=== PATIENT | female | born 1955 | race Caucasian/White ===

== ENCOUNTER 2017-09-18 05:57 | Emergency (ER) | payer SELFPAY ==
[2017-09-18 06:45] LABS: ABSOLUTE EOSINOPHILS # (AUTO) 0.1 10^3/uL (0.0-0.6); ABSOLUTE LYMPHOCYTES (AUTO) 1.7 10^3/uL (0.5-4.7); ABSOLUTE MONOCYTES (AUTO) 0.7 10^3/uL (0.1-1.4); ABSOLUTE NEUT (AUTO) 6.9 10^3/uL (1.7-8.2); BASOPHILS % (AUTO) 0.4 % (0-2); EOSINOPHILS % (AUTO) 0.5 % (0-6); HEMATOCRIT 45.8 % (36.0-47.0); HEMOGLOBIN 15.7 g/dL (12.0-15.5); LYMPHOCYTES % (AUTO) 17.8 % (13-45); MEAN CORPUSCULAR HEMOGLOBIN 31.3 pg (27.0-33.4); MEAN CORPUSCULAR HGB CONC 34.3 g/dL (32.0-36.0); MEAN CORPUSCULAR VOLUME 91 fl (80-97); MONOCYTES % (AUTO) 7.7 % (3-13); PLATELET COUNT 181 10^3/uL (150-450); RED BLOOD COUNT 5.03 10^6/uL (3.72-5.28); RED CELL DISTRIBUTION WIDTH 13.6 % (11.5-14.0); SEGMENTED NEUTROPHILS % (AUTO) 73.6 % (42-78); TOTAL CELLS COUNTED % (AUTO) 100 %; WHITE BLOOD COUNT 9.3 10^3/uL (4.0-10.5)
[2017-09-18 06:59] LABS: ALANINE AMINOTRANSFERASE 48 U/L (9-52); ALBUMIN 4.1 g/dL (3.5-5.0); ALKALINE PHOSPHATASE 90 U/L (38-126); ANION GAP 11 (5-19); ASPARTATE AMINO TRANSFERASE 35 U/L (14-36); BILIRUBIN,DIRECT 0.3 mg/dL (0.0-0.4); BILIRUBIN,TOTAL 1.4 mg/dL (0.2-1.3); BLOOD UREA NITROGEN 8 mg/dL (7-20); CALCIUM 9.7 mg/dL (8.4-10.2); CARBON DIOXIDE 28 mmol/L (22-30); CHLORIDE 103 mmol/L (98-107); GLUCOSE 234 mg/dL (75-110); POTASSIUM 3.7 mmol/L (3.6-5.0); SODIUM 141.8 mmol/L (137-145); TOTAL PROTEIN 7.3 g/dL (6.3-8.2)
[2017-09-18] MEDS ORDERED: NORMAL SALINE 1000 ML 1,000 ML IV ONE ×2 (07:22→09:55)
[2017-09-18] MEDS ORDERED: FAMOTIDINE INJ/PF 20 MG/2 ML SDV IV ONE (07:22)
[2017-09-18 08:25] LABS: APPEARANCE,URINE CLEAR; BILIRUBIN,URINE NEGATIVE (NEGATIVE); COLOR,URINE YELLOW; GLUCOSE, URINE 50 mg/dL (NEGATIVE); KETONES,URINE NEGATIVE (NEGATIVE); LEUKOCYTE ESTERASE,URINE NEGATIVE (NEGATIVE); NITRITE,URINE NEGATIVE (NEGATIVE); PROTEIN,URINE NEGATIVE (NEGATIVE); URINE SPECIFIC GRAVITY 1.005
[2017-09-18 08:38] LABS: ADD MANUAL MICROSCOPIC YES; WBC,URINE RARE /HPF
--- NOTE | 2017-09-18 09:01 | RADIOLOGY REPORT (SQ) ---
EXAM DESCRIPTION: CT ABD/PELVIS WITH IV ONLY COMPLETED DATE/TIME: 09/18/2017 8:40 am REASON FOR STUDY: epi abd pain COMPARISON: None. TECHNIQUE: CT scan of the abdomen and pelvis performed using helical scanning technique with dynamic intravenous contrast injection. No oral contrast. Images reviewed with lung, soft tissue, and bone windows. Reconstructed coronal and sagittal MPR images reviewed. Delayed images for evaluation of the urinary system also acquired. All images stored on PACS. All CT scanners at this facility use dose modulation, iterative reconstruction, and/or weight based d osing when appropriate to reduce radiation dose to as low as reasonably achievable (ALARA). [facility]: Dose Right [facility]: CareDose [facility]: Dose Right [facility]: Teradose 4D [facility]: [place] CONTRAST TYPE AND DOSE: contrast/concentration: Isovue 370.00 mg/ml; Total Contrast Delivered: 93.0 ml; Total Saline Delivered: 71.0 ml RENAL FUNCTION: GFR > 60. RADIATION DOSE: CT Rad equipment meets quality standard of care and radiation dose reduction techniq ues were employed. CTDIvol: 16.2 - 20.0 mGy. DLP: 1918 mGy-cm.. LIMITATIONS: None. FINDINGS: LOWER CHEST: No significant findings. No nodules or infiltrates. LIVER: Normal size. No masses. No dilated ducts. SPLEEN: Normal size. No focal lesions. PANCREAS: No masses. No significant calcifications. No adjacent inflammation or peripancreatic fluid collections. Pancreatic duct not dilated. GALLBLADDER: Surgically absent. ADRENAL GLANDS: No significant masses or asymmetry. RIGHT KIDNEY AND URETER: No solid masses. No significant calcifications. No hydronephrosis or hyd roureter. LEFT KIDNEY AND URETER: No solid masses. No significant calcifications. No hydronephrosis or hydr oureter. AORTA AND VESSELS: No aneurysm. No dissection. Renal arteries, SMA, celiac without stenosis. RETROPERITONEUM: No retroperitoneal adenopathy, hemorrhage or masses. BOWEL AND PERITONEAL CAVITY: No masses or inflammatory changes. No free fluid or peritoneal masses. APPENDIX: Normal. PELVIS: No mass. No free fluid. Normal bladder. ABDOMINAL WALL: Small umbilical hernia containing fat. BONES: Spondylosis and scoliosis. OTHER: No other significant finding. IMPRESSION: No acute abnormality in the abdomen or pelvis. TECHNICAL DOCUMENTATION: JOB ID: [id number] Quality ID # [id number]: Final reports with documentation of one or more dose reduction techniques (e.g., Au tomated exposure control, adjustment of the mA and/or kV according to patient size, use of iterative reconstruction technique) 2010 [email or web address]- All Rights Reserved
--- NOTE | 2017-09-18 09:22 | EKG REPORT ---
SEVERITY:- BORDERLINE ECG - SINUS RHYTHM BORDERLINE PROLONGED QT INTERVAL : Confirmed by: Kellee Banda 18-Sep-2017 09:22:14
[2017-09-18] MEDS ORDERED: KETOROLAC TROMETHAMINE INJ/PF 30 MG/1 ML SDV IV ONE (09:28)
[2017-09-18] MEDS ORDERED: ONDANSETRON HCL INJ/PF 4 MG/2 ML SDV IV ONE (09:28)
[2017-09-18] MEDS ORDERED: LORAZEPAM INJ 2 MG/1 ML VIAL IV ONE (09:52)
--- NOTE | 2017-09-18 10:28 | RADIOLOGY REPORT (SQ) ---
EXAM DESCRIPTION: CT HEAD WITHOUT COMPLETED DATE/TIME: 09/18/2017 10:11 am REASON FOR STUDY: ams COMPARISON: None. TECHNIQUE: Axial images acquired through the brain without intravenous contrast. Images reviewed wi th bone, brain and subdural windows. Images stored on PACS. All CT scanners at this facility use dose modulation, iterative reconstruction, and/or weight based d osing when appropriate to reduce radiation dose to as low as reasonably achievable (ALARA). [facility]: Dose Right [facility]: CareDose [facility]: Dose Right [facility]: Teradose 4D [facility]: Smart FOLUP RADIATION DOSE: CT Rad equipment meets quality standard of care and radiation dose reduction techniq ues were employed. CTDIvol: 64.6 mGy. DLP: 1163 mGy-cm. mGy. LIMITATIONS: None. FINDINGS: VENTRICLES: Normal size and contour. CEREBRUM: No masses. No hemorrhage. No midline shift. No evidence for acute infarction. Old left f rontal deep periventricular lacunar infarct. CEREBELLUM: No masses. No hemorrhage. No alteration of density. No evidence for acute infarction. EXTRAAXIAL SPACES: No fluid collections. No masses. ORBITS AND GLOBE: No intra- or extraconal masses. Normal contour of globe without masses. CALVARIUM: No fracture. PARANASAL SINUSES: No fluid or mucosal thickening. SOFT TISSUES: No mass or hematoma. OTHER: No other significant finding. IMPRESSION: 1. Chronic change, old left frontal deep white matter infarct. No acute abnormality det ected. EVIDENCE OF ACUTE STROKE: NO. COMMENT: Quality ID # 436: Final reports with documentation of one or more dose reduction techniques (e.g., Automated exposure control, adjustment of the mA and/or kV according to patient size, use of iterative reconstruction technique) TECHNICAL DOCUMENTATION: JOB ID: [id number]- All Rights Reserved
[2017-09-18 12:14] LABS: URINE AMPHETAMINES SCREEN NEGATIVE; URINE BARBITURATES SCREEN NEGATIVE; URINE BENZODIAZEPINES SCREEN NEGATIVE; URINE COCAINE SCREEN NEGATIVE; URINE MARIJUANA (THC) SCREEN NEGATIVE; URINE METHADONE SCREEN NEGATIVE; URINE PHENCYCLIDINE SCREEN NEGATIVE
--- NOTE | 2017-09-18 15:07 | ER Document Report ---
ED General - General TRAVEL OUTSIDE OF THE [place] IN LAST 30 DAYS: No - HPI Patient complains to provider of: Epigastric abdominal pain nausea vomiting <MADISYN LANE - Last Filed: 09/18/17 14:53> <JACK PALOMO - Last Filed: 09/18/17 16:13> <MIGUEL ANGEL VELÁZQUEZ - Last Filed: 09/18/17 16:48> - General Chief Complaint: Upper Abdominal Pain Stated Complaint: ABDOMINAL PAIN Time Seen by Provider: 09/18/17 06:33 - HPI Notes: Patient coming in for evaluation of Abdominal pain nausea vomiting. Patient states started over the last few days. Patient states unable tolerate p.o. Patient states she has had her gallbladder removed before denies drinking any alcohol denies any drugs. Denies any trauma to the abdomen. Upon my evaluation patient states she is feeling better after receiving Zofran. Patient is noted to be a little tachycardic. Denies any recent antibiotics denies fevers chills nausea vomiting. (MADISYN L[address]) Past Medical History - Social History Smoking Status: Never Smoker Chew tobacco use (# tins/day): No Frequency of alcohol use: Rare Drug Abuse: None Family History: Reviewed & Not Pertinent Patient has suicidal ideation: No Patient has homicidal ideation: No - Past Medical History Cardiac Medical History: Reports: Hx Hypercholesterolemia, Hx Hypertension Renal/ Medical History: Reports: Hx Kidney Stones. Denies: Hx Peritoneal Dialysis <MADISYN LANE - Last Filed: 09/18/17 14:53> Review of Systems - Review of Systems Constitutional: No symptoms reported EENT: No symptoms reported Cardiovascular: No symptoms reported Respiratory: No symptoms reported Gastrointestinal: Abdominal pain, Nausea, Vomiting Genitourinary: No symptoms reported Female Genitourinary: No symptoms reported Musculoskeletal: No symptoms reported Skin: No symptoms reported Hematologic/Lymphatic: No symptoms reported Neurological/Psychological: No symptoms reported -: Yes All other systems reviewed and negative <MADISYN LANE - Last Filed: 09/18/17 14:53> Physical Exam - Vital signs Interpretation: Normal - General General appearance: Appears well, Alert - HEENT Head: Normocephalic, Atraumatic Eyes: Normal Pupils: PERRL - Respiratory Respiratory status: No respiratory distress Chest status: Nontender Breath sounds: Normal Chest palpation: Normal - Cardiovascular Rhythm: Regular Heart sounds: Normal auscultation Murmur: No - Abdominal Inspection: Normal Distension: No distension Bowel sounds: Normal Tenderness: Tender - Mild epigastric Organomegaly: No organomegaly - Back Back: Normal, Nontender - Extremities General upper extremity: Normal inspection, Nontender, Normal color, Normal ROM , Normal temperature General lower extremity: Normal inspection, Nontender, Normal color, Normal ROM , Normal temperature, Normal weight bearing. No: Pilar's sign - Neurological Neuro grossly intact: Yes Cognition: Normal Orientation: AAOx4 [place] Coma Scale Eye Opening: Spontaneous [place] Coma Scale Verbal: Oriented [place] Coma Scale Motor: Obeys Commands [place] Coma Scale Total: 15 Speech: Normal Motor strength normal: LUE, RUE, LLE, RLE Sensory: Normal - Psychological Associated symptoms: Normal affect, Normal mood - Skin Skin Temperature: Warm Skin Moisture: Dry Skin Color: Normal <MADISYN LANE - Last Filed: 09/18/17 14:53> - Vital signs Vitals: Resp 18 09/18/17 05:58 Course - Laboratory Result Diagrams: 09/18/17 06:30 09/18/17 06:30 <[address] - Last Filed: 09/18/17 14:53> - Laboratory Result Diagrams: 09/18/17 06:30 09/18/17 06:30 <JACK PALOMO - Last Filed: 09/18/17 16:13> - Laboratory Result Diagrams: 09/18/17 06:30 09/18/17 06:30 <MIGUEL ANGEL VELÁZQUEZ - Last Filed: 09/18/17 16:48> - Re-evaluation Re-evalutation: 09/18/17 14:54 EKG troponin was performed to rule out cardiac causes which were negative. Patient's CT scan was negative as well laboratory studies were negative. Patient was able tolerate p.o. concerned about may be underlying gastritis however upon informing the patient that she will be discharged patient stated that she was hearing voices on the hallway with no talking. Patient states that the voices were people that she lives with. Further questioning patient states she has been off her medications for the last 2 weeks because she has been able to afford them. Patient states she is currently living in a mental health house. I was later informed by nursing staff patient had removed her IV when I questioned the patient while she removed her IV patient states that I removed. Patient seems to be absent slight hallucinations I did ask the patient about her psychiatric history patient states she has been off her medication has a history of depression also has a history of acute psychosis with her depression. Patient immediately asked to be transferred to [facility] for further evaluation. Because of this acute change I did CT the patient's head shows old infarct but nothing new. I did consult psych at this time I do believe more likely possibly just depression exacerbation of depression due to lack of medication. Patient is not making threats to herself does not look to want to harm anybody else nothing patient needs IVC criteria at this time. Possibility of underlying secondary gain however patient has not been to this facility multiple times. Currently waiting for our psych consult (MADISYN LANE) - Vital Signs Vital signs: Temp Pulse Resp BP Pulse Ox 18 162/76 H 95 09/18/17 12:18 09/18/17 12:18 09/18/17 12:18 - Laboratory Laboratory results interpreted by me: 09/18/17 09/18/17 09/18/17 06:30 06:30 07:36 Hgb 15.7 H Glucose 234 H Total Bilirubin 1.4 H Urine Glucose (UA) 50 H Urine Urobilinogen 4.0 H Discharge <MADISYN LANE - Last Filed: 09/18/17 14:53> <JACK PALOMO - Last Filed: 09/18/17 16:13> <MIGUEL ANGEL VELÁZQUEZ - Last Filed: 09/18/17 16:48> - Discharge Clinical Impression: Nausea & vomiting Qualifiers: Vomiting type: unspecified Vomiting Intractability: unspecified Qualified Code( s): R11.2 - Nausea with vomiting, unspecified Abdominal pain Qualifiers: Abdominal location: unspecified location Qualified Code(s): R10.9 - Unspecified abdominal pain Depression Qualifiers: Depression Type: unspecified Qualified Code(s): F32.9 - Major depressive disorder, single episode, unspecified Condition: Stable Disposition: HOME, SELF-CARE Instructions: Abdominal Pain ([facility]), Vomiting ([facility]) Additional Instructions: Follow-up with your primary care physician and your mental health provider. Take medications as prescribed. Prescriptions: Ondansetron [Zofran Odt 4 mg Tablet] 1 - 2 tab PO Q4H PRN #15 tab.rapdis PRN Reason: For Nausea/Vomiting Paroxetine HCl [Paxil 20 mg Tablet] 20 mg PO DAILY #7 tablet Paroxetine HCl [Paxil 20 mg Tablet] 20 mg PO DAILY #7 tablet Forms: Elevated Blood Pressure Referrals: [facility] [Outside] - Follow up as needed
[2017-09-18] MEDS ORDERED: PAROXETINE HCL 20 MG TABLET PO ONE (15:57)
[2017-09-18] MEDS ORDERED: QUETIAPINE FUMARATE 25 MG TABLET PO ONE (15:57)
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
[2017-09-18 20:06] VITALS: BP 115/49
== END 2017-09-18 20:19 | disposition home or self-care (01) ==
LOC: ER 05:57
DX: F32.9 Major depressive disorder, single episode, unspecified (principal); R10.9 Unspecified abdominal pain; R11.2 Nausea with vomiting, unspecified
CPT/HCPCS: 93005; 99285; 96361; 96374; 96375; 36415; 83690; 85025; 80053; 81001; 84484; 80307; 70450; 74177; 93010; J2405; J7030; S0028

== ENCOUNTER 2017-10-29 23:29 | Emergency (ER) | payer SELFPAY ==
[2017-10-30 00:02] VITALS: BP 133/64
[2017-10-30 02:39] LABS: APPEARANCE,URINE CLEAR; BILIRUBIN,URINE NEGATIVE (NEGATIVE); COLOR,URINE STRAW; GLUCOSE, URINE NEGATIVE (NEGATIVE); KETONES,URINE NEGATIVE (NEGATIVE); LEUKOCYTE ESTERASE,URINE NEGATIVE (NEGATIVE); NITRITE,URINE NEGATIVE (NEGATIVE); PROTEIN,URINE NEGATIVE (NEGATIVE); URINE SPECIFIC GRAVITY 1.002; UROBILINOGEN,URINE NEGATIVE mg/dL (<2.0)
--- NOTE | 2017-10-30 03:04 | ER Document Report ---
ED General - General Chief Complaint: Urinary Retention Stated Complaint: POSSIBLE DEHYDRATION Time Seen by Provider: 10/30/17 00:44 Notes: Patient is a 62-year-old female who presents with complaints of dysuria and urinary retention although has been able to urinate here in the emergency department. Patient is a very poor historian, but does relate that she has had a history of similar symptoms in the past secondary to urinary tract infections. She notes a pain with urination but denies any lower abdominal pain , flank pain, fever, vomiting or constitutional symptoms. She states that she just completed antibiotics several days ago for a urinary tract infection diagnosed by a primary doctor. TRAVEL OUTSIDE OF THE [place] IN LAST 30 DAYS: No - Related Data Allergies/Adverse Reactions: No Known Allergies Allergy (Unverified 10/29/17 23:36) Past Medical History - General Information source: Patient - Social History Smoking Status: Current Every Day Smoker Chew tobacco use (# tins/day): No Frequency of alcohol use: None Drug Abuse: None Family History: Reviewed & Not Pertinent Patient has suicidal ideation: No Patient has homicidal ideation: No - Past Medical History Cardiac Medical History: Reports: Hx Hypercholesterolemia, Hx Hypertension Renal/ Medical History: Reports: Hx Kidney Stones. Denies: Hx Peritoneal Dialysis Review of Systems - Review of Systems Notes: Constitutional: Negative for fever. HENT: Negative for sore throat. Eyes: Negative for visual changes. Cardiovascular: Negative for chest pain. Respiratory: Negative for shortness of breath. Gastrointestinal: Negative for abdominal pain, vomiting or diarrhea. Genitourinary: Positive for dysuria. Musculoskeletal: Negative for back pain. Skin: Negative for rash. Neurological: Negative for headaches, weakness or numbness. 10 point ROS negative except as marked above and in HPI. Physical Exam - Vital signs Vitals: Temp Pulse Resp BP Pulse Ox 98.6 F 91 18 133/64 H 97 10/30/17 00:01 10/30/17 00:01 10/30/17 00:01 10/30/17 00:01 10/30/17 00:01 Interpretation: Normal Notes: PHYSICAL EXAMINATION: GENERAL: Well-appearing, well-nourished and in no acute distress. HEAD: Atraumatic, normocephalic. EYES: Pupils equal round and reactive to light, extraocular movements intact, sclera anicteric, conjunctiva are normal. ENT: nares patent, oropharynx clear without exudates. Moist mucous membranes. NECK: Normal range of motion, supple without lymphadenopathy LUNGS: Breath sounds clear to auscultation bilaterally and equal. No wheezes rales or rhonchi. HEART: Regular rate and rhythm without murmurs ABDOMEN: Soft, nontender, normoactive bowel sounds. No guarding, no rebound. No masses appreciated. EXTREMITIES: Normal range of motion, no pitting or edema. No cyanosis. NEUROLOGICAL: No focal neurological deficits. Moves all extremities spontaneously and on command. PSYCH: Normal mood, normal affect. SKIN: Warm, Dry, normal turgor, no rashes or lesions noted. Course - Re-evaluation Re-evalutation: 10/30/17 03:03 Patient presents with dysuria and a feeling of inability to urinate although her urinalysis does not demonstrate any evidence of an infection and does not have any significant concentration that one would expect for urinary retention. She has been able to urinate without difficulty. She has no focal abdominal tenderness on examination to suggest an alternative pathology such as an acute appendicitis, mesenteric ischemia, bowel obstruction or bowel perforation. At this time will discharge with return precautions and follow-up recommendations. Verbal discharge instructions given a the bedside and opportunity for questions given. Medication warnings reviewed. Patient is in agreement with this plan and has verbalized understanding of return precautions and the need for primary care follow-up in the next 24-72 hours. - Vital Signs Vital signs: Temp Pulse Resp BP Pulse Ox 98.6 F 91 18 133/64 H 97 10/30/17 00:01 10/30/17 00:01 10/30/17 00:01 10/30/17 00:01 10/30/17 00:01 Discharge - Discharge Clinical Impression: Dysuria Condition: Good Disposition: HOME, SELF-CARE Additional Instructions: Your urine is normal today does not show any signs of infection or dehydration. Follow-up with your primary care doctor as needed for the symptoms. Return if you have any additional concerns of any fever, worsening of your pain, inability to urinate, passing out, or any other symptoms that are worrisome to you.
== END 2017-10-30 03:14 | disposition home or self-care (01) ==
LOC: ER 23:29
DX: R30.0 Dysuria (principal); I10 Essential (primary) hypertension; F17.200 Nicotine dependence, unspecified, uncomplicated; Z87.440 Personal history of urinary (tract) infections; Z87.442 Personal history of urinary calculi
CPT/HCPCS: 51701; 81001; 99283

== ENCOUNTER 2017-10-31 08:38 | Emergency (ER) | payer SELFPAY ==
--- NOTE | 2017-10-31 09:21 | ER Document Report ---
ED GI/ - General Chief Complaint: Urinary Problem Stated Complaint: URINARY ISSUES Time Seen by Provider: 10/31/17 09:10 Mode of Arrival: Ambulatory Information source: Patient Notes: Patient reports difficulty emptying her bladder off and on for the past 4 days. Patient states she was here 2 days ago for the same complaint. Patient does complain of lower pelvic pressure that is worse to the left lower quadrant. Patient denies any nausea vomiting or diarrhea. Patient denies any fever. Patient denies any back pain. TRAVEL OUTSIDE OF THE [place] IN LAST 30 DAYS: No - HPI Patient complains to provider of: Pelvic pain, Other - Urinary retention Onset: Other - 4 days Timing/Duration: Waxing and waning Quality of pain: Achy Pain Level: 1 Location: LLQ Vaginal bleeding (Compared to normal period): None Associated symptoms: Urinary hesitancy, Urinary retention. denies: Dysuria, Fever, Loss of appetite, Nausea Exacerbated by: Denies Relieved by: Denies Similar symptoms previously: Yes Recently seen / treated by doctor: No - Related Data Allergies/Adverse Reactions: No Known Allergies Allergy (Verified 10/31/17 08:40) Past Medical History - General Information source: Patient - Social History Smoking Status: Former Smoker Frequency of alcohol use: None Drug Abuse: None Occupation: None Family History: Reviewed & Not Pertinent Patient has suicidal ideation: No Patient has homicidal ideation: No - Past Medical History Cardiac Medical History: Reports: Hx Hypercholesterolemia, Hx Hypertension Renal/ Medical History: Reports: Hx Kidney Stones. Denies: Hx Peritoneal Dialysis Past Surgical History: Reports: Hx Urinary Tract Surgery Review of Systems - Review of Systems Constitutional: No symptoms reported. denies: Fever, Recent illness EENT: No symptoms reported Cardiovascular: No symptoms reported. denies: Chest pain Respiratory: No symptoms reported. denies: Cough Gastrointestinal: Abdominal pain. denies: Diarrhea, Nausea, Vomiting, Poor appetite Genitourinary: Retention. denies: Dysuria Female Genitourinary: No symptoms reported. denies: Vaginal discharge, Vaginal bleeding Musculoskeletal: No symptoms reported. denies: Back pain Skin: No symptoms reported Hematologic/Lymphatic: No symptoms reported Neurological/Psychological: No symptoms reported. denies: Weakness, Numbness Physical Exam - Vital signs Vitals: Temp Pulse Resp BP Pulse Ox 97.6 F 87 16 145/67 H 97 10/31/17 08:44 10/31/17 08:44 10/31/17 08:44 10/31/17 08:44 10/31/17 08:44 - General General appearance: Appears well, Alert In distress: None - HEENT Head: Normocephalic Eyes: Normal Conjunctiva: Normal Nasal: Normal Mouth/Lips: Normal Mucous membranes: Normal Pharynx: Normal Neck: Normal, Supple. No: Lymphadenopathy - Respiratory Respiratory status: No respiratory distress Chest status: Nontender Breath sounds: Normal. No: Rales, Rhonchi, Wheezing Chest palpation: Normal - Cardiovascular Rhythm: Regular Heart sounds: S1 appreciated, S2 appreciated Murmur: No - Abdominal Inspection: Normal Distension: No distension Bowel sounds: Normal Tenderness: Tender - Suprapubic, left lower pelvic Organomegaly: No organomegaly - Genitourinary External exam: Normal Speculum exam: Normal Vaginal bleeding: None Bimanuel exam: Adnexal tenderness - left, Other - Patient with palpable stool burden - Back Back: Normal. No: CVA tenderness - Extremities General upper extremity: Normal inspection, Normal ROM General lower extremity: Normal inspection, Normal ROM - Neurological Neuro grossly intact: Yes Cognition: Normal Lobo Coma Scale Eye Opening: Spontaneous Lobo Coma Scale Verbal: Oriented Lobo Coma Scale Motor: Obeys Commands [place] Coma Scale Total: 15 - Psychological Associated symptoms: Normal affect, Normal mood - Skin Skin Temperature: Warm Skin Moisture: Dry Skin Color: Normal Course - Re-evaluation Re-evalutation: 10/31/17 12:58 Patient had a postvoid residual of 500 mL's of urine on straight cath. Patient states that whenever she went ultrasound after the catheterization she was able to void without difficulty. Patient states she feels as though somebody moved something on the way that allowed it to be easier for her to urinate. Patient states that while waiting here in the department she is again voided without difficulty. Patient has not voided twice since her initial catheterization without problem. Review of patient's survey film does demonstrate a large amount of stool. Will treat constipation symptoms and have patient to return as needed for any difficulty with voiding. Patient without any findings concerning for obstructive uropathy, patient without any back pain, no concern for cauda equina, no concerning for any type of colitis or diverticulitis. - Vital Signs Vital signs: Temp Pulse Resp BP Pulse Ox 97.6 F 109 H 16 124/72 95 10/31/17 14:17 10/31/17 14:17 10/31/17 14:17 10/31/17 14:17 10/31/17 14:17 - Laboratory Result Diagrams: 10/31/17 09:47 10/31/17 09:47 Laboratory results interpreted by me: 10/31/17 09:47 Glucose 178 H AST 54 H ALT 61 H Labs- Entire Visit 10/31/17 10/31/17 10/31/17 09:47 09:47 09:57 WBC 5.3 RBC 4.82 Hgb 15.1 Hct 44.5 MCV 92 MCH 31.4 MCHC 34.0 RDW 14.0 Plt Count 173 Seg Neutrophils % 63.2 Lymphocytes % 24.1 Monocytes % 9.4 Eosinophils % 2.6 Basophils % 0.7 Absolute Neutrophils 3.4 Absolute Lymphocytes 1.3 Absolute Monocytes 0.5 Absolute Eosinophils 0.1 Absolute Basophils 0.0 Sodium 141.4 Potassium 3.7 Chloride 103 Carbon Dioxide 28 Anion Gap 10 BUN 8 Creatinine 0.72 Est GFR ( Amer) > 60 Est GFR (Non-Af Amer) > 60 Glucose 178 H Calcium 9.6 Total Bilirubin 0.8 Direct Bilirubin 0.4 Neonat Total Bilirubin Not Reportable Neonat Direct Bilirubin Not Reportable Neonat Indirect Bili Not Reportable AST 54 H ALT 61 H Alkaline Phosphatase 84 Total Protein 7.3 Albumin 4.1 Urine Color Urine Appearance Urine pH Ur Specific Black Urine Protein Urine Glucose (UA) Urine Ketones Urine Blood Urine Nitrite Urine Bilirubin Urine Urobilinogen Ur Leukocyte Esterase Urine WBC (Auto) Urine RBC (Auto) Squamous Epi Cells Auto Urine Mucus (Auto) Urine Ascorbic Acid Epi Cells (Wet Prep) Bacteria (Wet Prep) Trichomonas (Wet Prep) Vaginal WBC Vaginal Yeast Chlamydia DNA (PCR) NOT DETECTED N.gonorrhoeae DNA (PCR) NOT DETECTED 10/31/17 10/31/17 09:57 10:05 WBC RBC Hgb Hct MCV MCH MCHC RDW Plt Count Seg Neutrophils % Lymphocytes % Monocytes % Eosinophils % Basophils % Absolute Neutrophils Absolute Lymphocytes Absolute Monocytes Absolute Eosinophils Absolute Basophils Sodium Potassium Chloride Carbon Dioxide Anion Gap BUN Creatinine Est GFR ( Amer) Est GFR (Non-Af Amer) Glucose Calcium Total Bilirubin Direct Bilirubin Neonat Total Bilirubin Neonat Direct Bilirubin Neonat Indirect Bili AST ALT Alkaline Phosphatase Total Protein Albumin Urine Color YELLOW Urine Appearance SLIGHTLY-CLOUDY Urine pH 6.0 Ur Specific Black 1.003 Urine Protein NEGATIVE Urine Glucose (UA) NEGATIVE Urine Ketones NEGATIVE Urine Blood NEGATIVE Urine Nitrite NEGATIVE Urine Bilirubin NEGATIVE Urine Urobilinogen NEGATIVE Ur Leukocyte Esterase NEGATIVE Urine WBC (Auto) 0 Urine RBC (Auto) 0 Squamous Epi Cells Auto 7 Urine Mucus (Auto) RARE Urine Ascorbic Acid NEGATIVE Epi Cells (Wet Prep) 3+ EPITHELIALS SEEN Bacteria (Wet Prep) 3+ BACTERIA SEEN Trichomonas (Wet Prep) NO TRICHOMONAS SEEN Vaginal WBC FEW WBCS SEEN Vaginal Yeast NO YEAST SEEN Chlamydia DNA (PCR) N.gonorrhoeae DNA (PCR) - Diagnostic Test Radiology reviewed: Image reviewed, Reports reviewed Discharge - Discharge Clinical Impression: Urinary symptom or sign, Hx of essential hypertension Abdominal pain Qualifiers: Abdominal location: unspecified location Qualified Code(s): R10.9 - Unspecified abdominal pain Condition: Stable Disposition: HOME, SELF-CARE Instructions: Abdominal Pain ([facility]), Constipation ([facility]) Additional Instructions: Return immediately for any new or worsening symptoms Followup with your primary care provider, call tomorrow to make a followup appointment If you are unable to urinate, return immediately for further evaluation Take MiraLAX at home to help with your constipation symptoms Follow-up with urologist for any continued problems Prescriptions: Polyethylene Glycol 3350 [Miralax] 17 gm PO DAILY #119 powder Forms: Elevated Blood Pressure Referrals: [facility] [Provider Group] - Follow up as needed [facility] [Provider Group] - Follow up as needed [facility] [Provider Group] - Follow up as needed
[2017-10-31 10:12] LABS: BACTERIA (WET MOUNT) 3+ BACTERIA SEEN; EPITHELIALS (WET MOUNT) 3+ EPITHELIALS SEEN; T.VAGINALIS (WET MOUNT) NO TRICHOMONAS SEEN; WBCS (WET MOUNT) FEW WBCS SEEN; YEAST (WET MOUNT) NO YEAST SEEN
[2017-10-31 10:33] LABS: ABSOLUTE EOSINOPHILS # (AUTO) 0.1 10^3/uL (0.0-0.6); ABSOLUTE LYMPHOCYTES (AUTO) 1.3 10^3/uL (0.5-4.7); ABSOLUTE MONOCYTES (AUTO) 0.5 10^3/uL (0.1-1.4); ABSOLUTE NEUT (AUTO) 3.4 10^3/uL (1.7-8.2); BASOPHILS % (AUTO) 0.7 % (0-2); EOSINOPHILS % (AUTO) 2.6 % (0-6); HEMATOCRIT 44.5 % (36.0-47.0); HEMOGLOBIN 15.1 g/dL (12.0-15.5); LYMPHOCYTES % (AUTO) 24.1 % (13-45); MEAN CORPUSCULAR HEMOGLOBIN 31.4 pg (27.0-33.4); MEAN CORPUSCULAR VOLUME 92 fl (80-97); MONOCYTES % (AUTO) 9.4 % (3-13); RED BLOOD COUNT 4.82 10^6/uL (3.72-5.28); SEGMENTED NEUTROPHILS % (AUTO) 63.2 % (42-78); TOTAL CELLS COUNTED % (AUTO) 100 %; WHITE BLOOD COUNT 5.3 10^3/uL (4.0-10.5)
[2017-10-31 10:38] LABS: APPEARANCE,URINE SLIGHTLY-CLOUDY; BILIRUBIN,URINE NEGATIVE (NEGATIVE); COLOR,URINE YELLOW; GLUCOSE, URINE NEGATIVE (NEGATIVE); KETONES,URINE NEGATIVE (NEGATIVE); LEUKOCYTE ESTERASE,URINE NEGATIVE (NEGATIVE); NITRITE,URINE NEGATIVE (NEGATIVE); PROTEIN,URINE NEGATIVE (NEGATIVE); URINE SPECIFIC GRAVITY 1.003; UROBILINOGEN,URINE NEGATIVE mg/dL (<2.0)
[2017-10-31 10:50] LABS: ALANINE AMINOTRANSFERASE 61 U/L (9-52); ALBUMIN 4.1 g/dL (3.5-5.0); ALKALINE PHOSPHATASE 84 U/L (38-126); ANION GAP 10 (5-19); ASPARTATE AMINO TRANSFERASE 54 U/L (14-36); BILIRUBIN,DIRECT 0.4 mg/dL (0.0-0.4); BILIRUBIN,TOTAL 0.8 mg/dL (0.2-1.3); BLOOD UREA NITROGEN 8 mg/dL (7-20); CALCIUM 9.6 mg/dL (8.4-10.2); CARBON DIOXIDE 28 mmol/L (22-30); CHLORIDE 103 mmol/L (98-107); GLUCOSE 178 mg/dL (75-110); POTASSIUM 3.7 mmol/L (3.6-5.0); SODIUM 141.4 mmol/L (137-145); TOTAL PROTEIN 7.3 g/dL (6.3-8.2)
[2017-10-31 11:02] LABS: PLATELET COUNT 173 10^3/uL (150-450)
[2017-10-31 11:35] LABS: CHLAM PCR NOT DETECTED (NOT DETECT); GON PCR NOT DETECTED (NOT DETECT)
--- NOTE | 2017-10-31 11:36 | RADIOLOGY REPORT (SQ) ---
EXAM DESCRIPTION: U/S NON OB PEL TV W/DOPPLER COMPLETED DATE/TIME: 10/31/2017 11:03 am REASON FOR STUDY: suprapubic, L adnexal tenderness COMPARISON: CT abdomen and pelvis 09/18/2017. TECHNIQUE: Dynamic and static grayscale images acquired of the pelvis via transvaginal approach and recorded on PACS. Additional selected color Doppler and spectral images recorded. LIMITATIONS: None. FINDINGS: UTERUS: The uterus demonstrates normal echogenicity measuring 5.7 x 4.4 x 3.3 cm. . ENDOMETRIAL STRIPE: The endometrium is normal measuring 3 mm. CERVIX: Small nabothian cysts of the cervix. RIGHT OVARY: The right ovary is nonvisualized. On prior CT the right ovary measured 1.8 x 2 x 1.7 cm . The right ovary contained a small follicular cyst. LEFT OVARY: The left ovary is not visualized. On prior CT of the pelvis 09/18/2017 the left ovary was 2.9 x3 x 3.7 cm in size OTHER: No free fluid identified. IMPRESSION: Nonvisualization of the ovaries. Nabothian cysts cervix. Otherwise, no abnormality see n. TECHNICAL DOCUMENTATION: JOB ID: [id number] SC-69 2010 [employer]- All Rights Reserved
--- NOTE | 2017-10-31 12:24 | RADIOLOGY REPORT (SQ) ---
EXAM DESCRIPTION: CT ABD/PELVIS WITH IV ONLY COMPLETED DATE/TIME: 10/31/2017 12:12 pm REASON FOR STUDY: LLQ pain, urinary retention COMPARISON: 09/18/2017 TECHNIQUE: CT scan of the abdomen and pelvis performed using helical scanning technique with dynamic intravenous contrast injection. No oral contrast. Images reviewed with lung, soft tissue, and bone windows. Reconstructed coronal and sagittal MPR images reviewed. Delayed images for evaluation of the urinary system also acquired. All images stored on PACS. All CT scanners at this facility use dose modulation, iterative reconstruction, and/or weight based d osing when appropriate to reduce radiation dose to as low as reasonably achievable (ALARA). [facility]: Dose Right [facility]: CareDose [facility]: Dose Right [facility]: Teradose 4D [facility]: [email or web address] CONTRAST TYPE AND DOSE: contrast/concentration: Isovue 370.00 mg/ml; Total Contrast Delivered: 79.0 ml; Total Saline Delivered: 68.0 ml RENAL FUNCTION: GFR > 60. RADIATION DOSE: CT Rad equipment meets quality standard of care and radiation dose reduction techniq ues were employed. CTDIvol: 9.9 - 14.5 mGy. DLP: 1308 mGy-cm.. LIMITATIONS: None. FINDINGS: LOWER CHEST: No significant findings. No nodules or infiltrates. LIVER: Stable degree of hepatic steatosis. No masses. No dilated ducts. SPLEEN: Normal size. No focal lesions. PANCREAS: No masses. No significant calcifications. No adjacent inflammation or peripancreatic fluid collections. Pancreatic duct not dilated. GALLBLADDER: Surgically absent. ADRENAL GLANDS: No significant masses or asymmetry. RIGHT KIDNEY AND URETER: No solid masses. No significant calcifications. No hydronephrosis or hyd roureter. LEFT KIDNEY AND URETER: No solid masses. No significant calcifications. No hydronephrosis or hydr oureter. AORTA AND VESSELS: No aneurysm. No dissection. Renal arteries, SMA, celiac without stenosis. RETROPERITONEUM: No retroperitoneal adenopathy, hemorrhage or masses. BOWEL AND PERITONEAL CAVITY: No masses or inflammatory changes. No free fluid or peritoneal masses. APPENDIX: Normal. PELVIS: No mass. No free fluid. Normal bladder. ABDOMINAL WALL: No masses. No hernias. BONES: Stable degenerative change without acute fracture or suspicious osseous lesion. OTHER: No other significant finding. IMPRESSION: NO ACUTE FINDINGS WITHIN THE ABDOMEN OR PELVIS. NO SIGNIFICANT CHANGE FROM 09/18/2017. TECHNICAL DOCUMENTATION: JOB ID: [id number] Quality ID # [id number]: Final reports with documentation of one or more dose reduction techniques (e.g., Au tomated exposure control, adjustment of the mA and/or kV according to patient size, use of iterative reconstruction technique) 2010 [employer]- All Rights Reserved
[2017-10-31] MEDS ORDERED: NA PHOS,M-B/NA PHOS,DI-BA (ADULT) 133 ML ENEMA PR ONE (12:57)
[2017-10-31 14:28] VITALS: BP 124/72
== END 2017-10-31 14:17 | disposition home or self-care (01) ==
LOC: ER 08:38
DX: R39.198 Other difficulties with micturition (principal); I10 Essential (primary) hypertension; R10.2 Pelvic and perineal pain; R10.32 Left lower quadrant pain; R39.11 Hesitancy of micturition; R33.9 Retention of urine, unspecified; Z87.891 Personal history of nicotine dependence
CPT/HCPCS: 99284; 36415; 87086; 87210; 85025; 80053; 81001; 87491; 87591; 76830; 93976; 74177; J3490

== ENCOUNTER 2017-11-01 05:26 | Emergency (ER) | payer SELFPAY ==
--- NOTE | 2017-11-01 08:10 | RADIOLOGY REPORT (SQ) ---
EXAM DESCRIPTION: CHEST PA/LAT COMPLETED DATE/TIME: 11/01/2017 7:59 am REASON FOR STUDY: palpitation COMPARISON: None. EXAM PARAMETERS: NUMBER OF VIEWS: two views TECHNIQUE: Digital Frontal and Lateral radiographic views of the chest acquired. RADIATION DOSE: NA LIMITATIONS: none FINDINGS: LUNGS AND PLEURA: Hyperinflation of the lungs is consistent with COPD. Minimal bilateral apical pleural thickening. MEDIASTINUM AND HILAR STRUCTURES: No masses or contour abnormalities. HEART AND VASCULAR STRUCTURES: The heart is normal with normal pulmonary vasculature. BONES: Mid and lower dorsal scoliosis convex right. Upper dorsal scoliosis convex left. HARDWARE: None in the chest. OTHER: Surgical clips right upper quadrant. IMPRESSION: COPD. TECHNICAL DOCUMENTATION: JOB ID: [id number] SC-69 2010 [employer]- All Rights Reserved
[2017-11-01 09:03] LABS: ANION GAP 10 (5-19); BLOOD UREA NITROGEN 8 mg/dL (7-20); CALCIUM 9.5 mg/dL (8.4-10.2); CARBON DIOXIDE 26 mmol/L (22-30); CHLORIDE 107 mmol/L (98-107); GLUCOSE 102 mg/dL (75-110); MAGNESIUM 1.9 mg/dL (1.6-2.3); POTASSIUM 3.9 mmol/L (3.6-5.0); SODIUM 142.9 mmol/L (137-145)
[2017-11-01 09:09] LABS: ABSOLUTE EOSINOPHILS # (AUTO) 0.2 10^3/uL (0.0-0.6); ABSOLUTE MONOCYTES (AUTO) 0.6 10^3/uL (0.1-1.4); BASOPHILS % (AUTO) 0.5 % (0-2); HEMATOCRIT 43.5 % (36.0-47.0); HEMOGLOBIN 14.9 g/dL (12.0-15.5); LYMPHOCYTES % (AUTO) 14.9 % (13-45); MEAN CORPUSCULAR HEMOGLOBIN 31.6 pg (27.0-33.4); MEAN CORPUSCULAR HGB CONC 34.3 g/dL (32.0-36.0); MEAN CORPUSCULAR VOLUME 92 fl (80-97); MONOCYTES % (AUTO) 8.4 % (3-13); PLATELET COUNT 165 10^3/uL (150-450); RED BLOOD COUNT 4.72 10^6/uL (3.72-5.28); SEGMENTED NEUTROPHILS % (AUTO) 73.2 % (42-78); TOTAL CELLS COUNTED % (AUTO) 100 %; WHITE BLOOD COUNT 6.8 10^3/uL (4.0-10.5)
--- NOTE | 2017-11-01 09:34 | EKG REPORT ---
SEVERITY:- ABNORMAL ECG - SINUS TACHYCARDIA PROBABLE LEFT ATRIAL ABNORMALITY CONSIDER ANTERIOR INFARCT BORDERLINE PROLONGED QT INTERVAL : Confirmed by: Kellee Banda 01-Nov-2017 09:34:25
--- NOTE | 2017-11-01 09:40 | ER Document Report ---
ED General - General Chief Complaint: High Blood Pressure Stated Complaint: BLOOD PRESSURE PROBLEM Time Seen by Provider: 11/01/17 07:44 TRAVEL OUTSIDE OF THE [place] IN LAST 30 DAYS: No - HPI Patient complains to provider of: Palpitations elevated blood pressure Notes: Patient is coming in for concerns of palpitation of her blood pressure occurred just prior to arrival. Patient is questioning if this may be her anxiety is that she does have a history of diabetes on the psychiatric medications. Patient states no change in medications. Patient denies any fever chills nausea vomiting diarrhea denies any recent travel denies any shortness of breath. Patient upon my evaluation states that since she has been in the waiting room her symptoms have resolved. Patient resting comfortably upon my evaluation. - Related Data Allergies/Adverse Reactions: No Known Allergies Allergy (Verified 10/31/17 08:40) Past Medical History - Social History Smoking Status: Current Every Day Smoker Chew tobacco use (# tins/day): No Family History: Reviewed & Not Pertinent Patient has suicidal ideation: No Patient has homicidal ideation: No - Past Medical History Cardiac Medical History: Reports: Hx Hypercholesterolemia, Hx Hypertension Renal/ Medical History: Reports: Hx Kidney Stones. Denies: Hx Peritoneal Dialysis Past Surgical History: Reports: Hx Urinary Tract Surgery Review of Systems - Review of Systems Constitutional: No symptoms reported EENT: No symptoms reported Cardiovascular: Palpitations Respiratory: No symptoms reported Gastrointestinal: No symptoms reported Genitourinary: No symptoms reported Female Genitourinary: No symptoms reported Musculoskeletal: No symptoms reported Skin: No symptoms reported Hematologic/Lymphatic: No symptoms reported Neurological/Psychological: No symptoms reported -: Yes All other systems reviewed and negative Physical Exam - Vital signs Vitals: Temp Pulse Resp BP Pulse Ox 98.3 F 100 20 147/69 H 96 11/01/17 05:40 11/01/17 05:40 11/01/17 05:40 11/01/17 05:40 11/01/17 05:40 Interpretation: Normal - General General appearance: Appears well, Alert - HEENT Head: Normocephalic, Atraumatic Eyes: Normal Pupils: PERRL - Respiratory Respiratory status: No respiratory distress Chest status: Nontender Breath sounds: Normal Chest palpation: Normal - Cardiovascular Rhythm: Regular Heart sounds: Normal auscultation Murmur: No - Abdominal Inspection: Normal Distension: No distension Bowel sounds: Normal Tenderness: Nontender Organomegaly: No organomegaly - Back Back: Normal, Nontender - Extremities General upper extremity: Normal inspection, Nontender, Normal color, Normal ROM , Normal temperature General lower extremity: Normal inspection, Nontender, Normal color, Normal ROM , Normal temperature, Normal weight bearing. No: Pilar's sign - Neurological Neuro grossly intact: Yes Cognition: Normal Orientation: AAOx4 [place] Coma Scale Eye Opening: Spontaneous [place] Coma Scale Verbal: Oriented [place] Coma Scale Motor: Obeys Commands [place] Coma Scale Total: 15 Speech: Normal Motor strength normal: LUE, RUE, LLE, RLE Sensory: Normal - Psychological Associated symptoms: Normal affect, Normal mood - Skin Skin Temperature: Warm Skin Moisture: Dry Skin Color: Normal Course - Re-evaluation Re-evalutation: 11/01/17 13:43 The patient has palpitations as the patient's palpitations is not suggestive of pulmonary embolus, cardiac ischemia, aortic dissection, or other serious etiology. Given the extremely low risk of these diagnoses further testing and evaluation for these possibilities does not appear to be indicated at this time. The patient has been instructed to return if the symptoms worsen or change in any way. - Vital Signs Vital signs: Temp Pulse Resp BP Pulse Ox 98.0 F 96 20 141/73 H 97 11/01/17 10:16 11/01/17 10:16 11/01/17 05:40 11/01/17 10:16 11/01/17 10:16 - Laboratory Result Diagrams: 11/01/17 08:37 11/01/17 08:22 Discharge - Discharge Clinical Impression: Palpitation Condition: Good Disposition: HOME, SELF-CARE Instructions: Anxiety ([facility]), Palpitations (Irregular or Rapid Heartrate) ([facility]) Additional Instructions: Your evaluation does not show any signs of infection within your lungs no signs of any cardiac disease. I recommend she follow-up with your primary care physician. There is a possibility could be on her underlying anxiety. I will start you on Vistaril to take at night to discuss your symptoms with your primary care physician in follow-up. Prescriptions: Hydroxyzine Pamoate [Vistaril 25 mg Capsule] 25 mg PO QHS #14 capsule
[2017-11-01 10:18] VITALS: BP 141/73
== END 2017-11-01 10:30 | disposition home or self-care (01) ==
LOC: ER 05:26
DX: F41.9 Anxiety disorder, unspecified (principal); Z79.899 Other long term (current) drug therapy; R00.2 Palpitations; I10 Essential (primary) hypertension; F17.200 Nicotine dependence, unspecified, uncomplicated
CPT/HCPCS: 36415; 71046; 80048; 83735; 84484; 85025; 93005; 93010; 99284

== ENCOUNTER 2017-11-13 00:50 | Emergency (ER) | payer SELFPAY ==
--- NOTE | 2017-11-13 02:22 | ER Document Report ---
HPI - HPI Pain Level: 3 Notes: Patient is a 62-year-old female who presents to the ED with 2 complaints. Patient states that she has had vaginal discomfort on the inside 1 day. Patient states that this is what brought her to the emergency department today. She has not noticed any obvious discharge, bleeding. Patient states that she is not concerned about STDs or STI's that she has not been sexually active. Patient also complains of incomplete voiding x2 days. Patient states that she had this issue a couple weeks ago as well and presented to the emergency department had to have a catheterization performed. Patient states that she has not been seen by a urologist yet. Patient has not had any other burning, urgency, or frequency. She denies any drug allergies. Denies any headache, fever, neck pain, URI, sore throat, chest pain, palpitations, syncope, cough, shortness of breath, wheeze, dyspnea, abdominal pain, nausea/vomiting/diarrhea, loss of control of bowel or bladder, back pain, numbness/tingling, saddle anesthesia, muscle paralysis/weakness, or rash. - ROS Systems Reviewed and Negative: Yes All other systems reviewed and negative - REPRODUCTIVE Reproductive: DENIES: : Past Medical History - Social History Smoking Status: Never Smoker Family History: Reviewed & Not Pertinent - Past Medical History Cardiac Medical History: Reports: Hx Hypercholesterolemia, Hx Hypertension Renal/ Medical History: Reports: Hx Kidney Stones. Denies: Hx Peritoneal Dialysis Past Surgical History: Reports: Hx Urinary Tract Surgery Vertical Provider Document - CONSTITUTIONAL Agree With Documented VS: Yes Notes: PHYSICAL EXAMINATION: GENERAL: Well-appearing, well-nourished and in no acute distress. LUNGS: Breath sounds clear to auscultation bilaterally and equal. No wheezes rales or rhonchi. HEART: Regular rate and rhythm without murmurs ABDOMEN: Soft, nontender, nondistended abdomen. No guarding, no rebound. No masses appreciated. Normal bowel sounds present. CVA tenderness negative bilaterally. Female : No inguinal adenopathy. External genitalia without erythema, lesions , or masses. Vaginal mucosa pink with scant white discharge. Cervix parous, pink, and without discharge. Uterus is smooth. No adnexal tenderness. Extremities: No cyanosis/clubbing/edema b/l. Peripheral pulses 2+. Capillary refill less than 3 seconds. NEUROLOGICAL: Normal speech, normal gait. Normal sensory, motor exams PSYCH: Normal mood, normal affect. SKIN: Warm, Dry, normal turgor, no rashes or lesions noted. - INFECTION CONTROL TRAVEL OUTSIDE OF THE [place] IN LAST 30 DAYS: No - RESPIRATORY O2 Sat by Pulse Oximetry: 100 Course - Re-evaluation Re-evalutation: 11/13/17 03:01 Patient is an afebrile, well-hydrated, 8-year-old female who presents to the ED with urinary retention as well as vaginal pain not otherwise specified. Vitals are stable. PE is otherwise unremarkable. Pelvic exam was performed and unremarkable for acute pathology. Wet mount was unremarkable for any acute pathology. Chlamydia/gonorrhea tests are pending, but I do have a low suspicion of STD/STI at this time. Patient states that she is not concerned about STD or STI at this time and does not wish for the prophylactic treatment with risks and benefits understood. Patient is in agreement that she will return if any positive test once resulted. Patient's abdomen was otherwise soft and nontender. Pt was able to release about 40-60ml of urine. Rebolledo was then placed and 250-275mls were then obtained. We will keep the rebolledo in place and have her f/u with urology. Low suspicion/risk for acute appendicitis, bowel obstruction, acute cholecystitis, acute cholangitis, perforated diverticulitis, incarcerated hernia, pancreatitis, perforated ulcer, peritonitis , sepsis, pelvic inflammatory disease, ectopic , tubo-ovarian abscess, ovarian torsion, or other systemic emergent condition at this time. Patient is aware that her condition can change from initial presentation and she needs to monitor symptoms closely and seek medical attention if any acute changes. Conservative measures otherwise for symptoms. Recheck with OBGYN in 3-5 days. Recheck with your PCM in 3-5 days. Schedule a consult with Urology (2-4 day recheck if able). Return to the ED with any worsening/concerning symptoms otherwise as reviewed in discharge. Patient is in agreement. - Vital Signs Vital signs: Temp Pulse Resp BP Pulse Ox 98.1 F 67 18 110/65 100 11/13/17 01:00 11/13/17 01:00 11/13/17 01:00 11/13/17 01:00 11/13/17 01:00 Procedures - Pelvic Exam Pelvic exam Time completed: 02:15 Cultures obtained: Yes Wet prep obtained: Yes Witnessed by: female nurse Discharge - Discharge Clinical Impression: Vaginal discomfort, Urinary retention with incomplete bladder emptying Condition: Stable Disposition: HOME, SELF-CARE Instructions: Urinary Retention ([facility]) Additional Instructions: Push fluids (i.e. water) Proper hygenic technique Keep the skin clean Tylenol/ibuprofen as needed Monitor symptoms closely Take medications as directed F/u with your PCM in 3-5 days for a recheck Schedule an appointment with OBGYN for further evaluation and management x3-5 days Schedule a consult with a Urologist for further evaluation and management x2-4 days if able Return to the ED with any worsening symptoms and/or development of fever, headache, chest pain, palpitations, syncope, shortness of breath, trouble breathing, abdominal pain, n/v/d, blood in stool/urine, loss of control of bowel /bladder, urinary retention, or other worsening symptoms that are concerning to you. (You may ignore the 'prostate' reasons in the hand-out for urinary retention as this will not pertain to you) Referrals: [facility] [Provider Group] - Follow up in 3-5 days [facility] [Provider Group] - 11/16/17
[2017-11-13 02:42] LABS: RBCS (WET MOUNT) RARE RBCS SEEN; T.VAGINALIS (WET MOUNT) NO TRICHOMONAS SEEN; WBCS (WET MOUNT) 1+ WBCS SEEN; YEAST (WET MOUNT) NO YEAST SEEN
[2017-11-13 02:57] LABS: APPEARANCE,URINE SLIGHTLY-CLOUDY; BILIRUBIN,URINE NEGATIVE (NEGATIVE); COLOR,URINE YELLOW; GLUCOSE, URINE NEGATIVE (NEGATIVE); KETONES,URINE NEGATIVE (NEGATIVE); LEUKOCYTE ESTERASE,URINE NEGATIVE (NEGATIVE); NITRITE,URINE NEGATIVE (NEGATIVE); PROTEIN,URINE NEGATIVE (NEGATIVE); URINE SPECIFIC GRAVITY 1.006
[2017-11-13 03:45] VITALS: BP 120/57
[2017-11-13 04:04] LABS: CHLAM PCR NOT DETECTED (NOT DETECT); GON PCR NOT DETECTED (NOT DETECT)
== END 2017-11-13 03:45 | disposition home or self-care (01) ==
LOC: ER 00:50
DX: R10.2 Pelvic and perineal pain (principal); R33.9 Retention of urine, unspecified; E78.00 Pure hypercholesterolemia, unspecified; I10 Essential (primary) hypertension; Z87.442 Personal history of urinary calculi
CPT/HCPCS: 51702; 81001; 87086; 87088; 87186; 87210; 87491; 87591; 99283

== ENCOUNTER 2017-11-13 14:08 | Emergency (ER) | payer SELFPAY ==
--- NOTE | 2017-11-13 14:51 | ER Document Report ---
ED Medical Screen (RME) - General Chief Complaint: Problem with Urinary Catheter Stated Complaint: CATHETER ISSUES Time Seen by Provider: 11/13/17 14:45 Mode of Arrival: Ambulatory Information source: Patient Notes: Patient presents to the emergency room requesting urinary catheter being taken out. She states it was placed last night because of vaginal discomfort and she was not passing all urine. She was noted to have incomplete bladder emptying and a Bonds was placed and she was given a Bonds leg bag until follow-up with the urologist. She now presents with complaints that the Bonds is irritating her and she wants the Bonds taken out. She denies any fever, chills, nausea vomiting. The Bonds has been draining appropriately. TRAVEL OUTSIDE OF THE [place] IN LAST 30 DAYS: No - HPI Onset: Yesterday Onset/Duration: Gradual Quality of pain: No pain, Dull Severity: Moderate Pain Level: 2 Associated Symptoms: denies: Chills, Fever Exacerbated by: Denies Relieved by: Denies Similar symptoms previously: No Recently seen / treated by doctor: Yes - Related Data Smoking: Non-smoker Frequency of alcohol use: None Drug Abuse: None Allergies/Adverse Reactions: No Known Allergies Allergy (Verified 11/13/17 14:45) Past Medical History - General Information source: Patient - Social History Cigarette use (# per day): No Chew tobacco use (# tins/day): No Frequency of alcohol use: None Drug Abuse: None Lives with: Family Family history: None - Past Medical History Cardiac Medical History: Reports: Hx Hypercholesterolemia, Hx Hypertension Renal/ Medical History: Reports: Hx Kidney Stones. Denies: Hx Peritoneal Dialysis Past Surgical History: Reports: Hx Urinary Tract Surgery Review of Systems - Review of Systems Constitutional: denies: Chills, Fever EENT: No symptoms reported Cardiovascular: No symptoms reported Respiratory: No symptoms reported Gastrointestinal: No symptoms reported Genitourinary: See HPI Female Genitourinary: See HPI Musculoskeletal: No symptoms reported Skin: No symptoms reported Hematologic/Lymphatic: No symptoms reported Neurological/Psychological: No symptoms reported Physical Exam - Vital signs Vitals: Temp Pulse Resp BP Pulse Ox 98.5 F 87 16 127/68 H 95 11/13/17 14:15 11/13/17 14:15 11/13/17 14:15 11/13/17 14:15 11/13/17 14:15 Notes: Physical exam: GENERAL: 62-year-old female, alert and oriented 3, no acute distress. HEAD: Atraumatic, normocephalic. EYES: Pupils equal round and reactive to light, extraocular movements intact, sclera anicteric, conjunctiva are normal. ENT:Moist mucous membranes. NECK: Normal range of motion, supple without obvious mass LUNGS: Breath sounds clear to auscultation bilaterally and equal. No wheezes rales or rhonchi. HEART: Regular rate and rhythm without murmurs, rubs or gallops. ABDOMEN: Soft, normoactive bowel sounds. No tenderness to palpation. No guarding, no rebound. No masses appreciated. EXTREMITIES: Normal range of motion, no pitting or edema. No clubbing or cyanosis. NEUROLOGICAL: Cranial nerves II through XII grossly intact. Normal speech, moving all extremities. PSYCH: Normal mood, normal affect. SKIN: Warm, Dry, normal turgor, no rashes or lesions noted. Course - Re-evaluation Re-evalutation: 11/13/17 16:15 The patient was quite adamant about having the Bonds removed. We did send a urine with a urine culture. The UA looks quite good at this time. The patient will follow up with her primary care doctor with a urologist referral. - Vital Signs Vital signs: Temp Pulse Resp BP Pulse Ox 98.5 F 87 16 127/68 H 95 11/13/17 14:15 11/13/17 14:15 11/13/17 14:15 11/13/17 14:15 11/13/17 14:15 - Laboratory Laboratory results interpreted by me: 11/13/17 15:09 Urine Blood SMALL H Ur Leukocyte Esterase TRACE H Doctor's Discharge - Discharge Clinical Impression: Dysuria Condition: Stable Disposition: HOME, SELF-CARE Additional Instructions: As we discussed, the urine test look good today. We did send a urine culture and if that comes back positive, we will call you for antibiotics. Continue with the plan of following up with your primary care and ultimately with a urologist. Return to the emergency room if you are unable to urinate or if you have worsening pain with urination or any concerns or getting worse.
[2017-11-13 15:51] LABS: APPEARANCE,URINE CLEAR; BILIRUBIN,URINE NEGATIVE (NEGATIVE); COLOR,URINE YELLOW; GLUCOSE, URINE NEGATIVE (NEGATIVE); KETONES,URINE NEGATIVE (NEGATIVE); LEUKOCYTE ESTERASE,URINE TRACE (NEGATIVE); NITRITE,URINE NEGATIVE (NEGATIVE); PROTEIN,URINE NEGATIVE (NEGATIVE); URINE SPECIFIC GRAVITY 1.003; UROBILINOGEN,URINE NEGATIVE mg/dL (<2.0)
[2017-11-13 16:17] VITALS: BP 129/77
== END 2017-11-13 16:17 | disposition home or self-care (01) ==
LOC: ER 14:08
DX: R30.0 Dysuria (principal); Z46.6 Encounter for fitting and adjustment of urinary device; E78.00 Pure hypercholesterolemia, unspecified; I10 Essential (primary) hypertension; Z87.442 Personal history of urinary calculi
CPT/HCPCS: 81001; 87086; 87088; 87186; 99283

== ENCOUNTER 2017-11-13 19:26 | Emergency (ER) | payer SELFPAY ==
[2017-11-13 19:39] VITALS: BP 127/68
--- NOTE | 2017-11-13 20:01 | ER Document Report ---
ED General - General Chief Complaint: Trouble Voiding Stated Complaint: TROUBLE URINATING Time Seen by Provider: 11/13/17 19:49 Notes: Patient is a 62-year-old female who returns to the emergency department for the third time today complaining of inability to void. Patient was seen earlier this morning, had a Bonds catheter placed for urinary retention. She returned several hours later, stating she could not tolerate the catheter due to discomfort. Bonds catheter was removed at the patient's request. She was subsequently discharged. However she states that since discharge she has been unable to void and is returning due to this concern. She has no history of urinary retention in the past. She does note a dull, aching, constant suprapubic abdominal fullness. She states this feels the same as it did earlier when she had a distended bladder. She has not had any fever or constitutional symptoms. She is refusing Bonds catheter placement. TRAVEL OUTSIDE OF THE [place] IN LAST 30 DAYS: No - Related Data Allergies/Adverse Reactions: No Known Allergies Allergy (Verified 11/13/17 14:45) Past Medical History - General Information source: Patient - Social History Smoking Status: Former Smoker Frequency of alcohol use: None Drug Abuse: None Lives with: Homeless Family History: Reviewed & Not Pertinent - Past Medical History Cardiac Medical History: Reports: Hx Hypercholesterolemia, Hx Hypertension Renal/ Medical History: Reports: Hx Kidney Stones. Denies: Hx Peritoneal Dialysis Past Surgical History: Reports: Hx Urinary Tract Surgery Review of Systems - Review of Systems Notes: Constitutional: Negative for fever. HENT: Negative for sore throat. Eyes: Negative for visual changes. Cardiovascular: Negative for chest pain. Respiratory: Negative for shortness of breath. Gastrointestinal: Positive for suprapubic abdominal fullness Genitourinary: Positive for urinary retention Musculoskeletal: Negative for back pain. Skin: Negative for rash. Neurological: Negative for headaches, weakness or numbness. 10 point ROS negative except as marked above and in HPI. Physical Exam - Vital signs Vitals: Temp Pulse Resp BP Pulse Ox 97.6 F 83 12 127/68 H 97 11/13/17 19:38 11/13/17 19:38 11/13/17 19:38 11/13/17 19:38 11/13/17 19:38 Interpretation: Normal Notes: PHYSICAL EXAMINATION: GENERAL: Well-appearing, well-nourished and in no acute distress. HEAD: Atraumatic, normocephalic. EYES: Pupils equal round and reactive to light, extraocular movements intact, sclera anicteric, conjunctiva are normal. ENT: nares patent, oropharynx clear without exudates. Moist mucous membranes. NECK: Normal range of motion, supple without lymphadenopathy LUNGS: Breath sounds clear to auscultation bilaterally and equal. No wheezes rales or rhonchi. HEART: Regular rate and rhythm without murmurs ABDOMEN: Soft, mild suprapubic abdominal tenderness to palpation no other localized areas of tenderness EXTREMITIES: Normal range of motion, no pitting or edema. No cyanosis. NEUROLOGICAL: No focal neurological deficits. Moves all extremities spontaneously and on command. PSYCH: Normal mood, normal affect. SKIN: Warm, Dry, normal turgor, no rashes or lesions noted. Course - Re-evaluation Re-evalutation: 11/13/17 19:58 Patient presents with urinary retention. She was seen earlier this morning, had a Bonds catheter placed for urinary retention. She came back several hours later due to irritation with a Bonds catheter stating she could not take it anymore. They did remove the Bonds catheter and send urinalysis. However since discharge from the second ER visit the patient has been unable to void. It has been over 6 hours. At this time point I have recommended replacement of the Bonds catheter and outpatient urology follow-up for a repeat assessment of the etiology of her urinary retention as well as to prevent obstruction and associated kidney injury. Patient however is requesting a single straight catheter and discharge home stating she will come back if she again fails a trial of void. She is resistant to the idea of Bonds catheter placement due to discomfort. She does however acknowledge that if she does not come back to emergency department she will accept a Bonds catheter placement. Her physical examination is otherwise unremarkable with exception of mild subpubic abdominal discomfort likely secondary to urinary retention. Her vitals are with us within normal limits. She denies any acute complaints. Will discharge after straight catheterization has been performed. Patient is in agreement with this plan and has verbalized understanding of the need to return to the emergency department she continues to be unable to void. - Vital Signs Vital signs: Temp Pulse Resp BP Pulse Ox 97.6 F 83 12 127/68 H 97 11/13/17 19:38 11/13/17 19:38 11/13/17 19:38 11/13/17 19:38 11/13/17 19:38 Discharge - Discharge Clinical Impression: Urinary retention with incomplete bladder emptying Condition: Good Disposition: HOME, SELF-CARE Additional Instructions: You need to return to the emergency department if you continue to be unable to void. There is a very high risk that this will be an unsuccessful discharge as you have already had 2 prior visits with inability to completely empty your bladder.
== END 2017-11-13 20:28 | disposition home or self-care (01) ==
LOC: ER 19:26
DX: R33.9 Retention of urine, unspecified (principal); E78.00 Pure hypercholesterolemia, unspecified; I10 Essential (primary) hypertension; Z87.442 Personal history of urinary calculi
CPT/HCPCS: 51701; 99284

== ENCOUNTER 2017-11-14 10:06 | Emergency (ER) | payer SELFPAY ==
[2017-11-14 10:33] VITALS: BP 139/73
--- NOTE | 2017-11-14 10:51 | ER Document Report ---
ED Medical Screen (RME) - General Chief Complaint: Lower Abdominal Pain Stated Complaint: URINARY ISSUES Time Seen by Provider: 11/14/17 10:46 Notes: Patient is here with vaginal pain and continued difficulty urinating. She says that she was seen here a couple of days ago because of vaginal pain, lower abdominal pain, and could not urinate. She had a Bonds catheter placed and was sent home with a leg bag. She came back a day or so ago because she was having continued vaginal pain and seemed as if it was difficult for her to urinate, although she did not say that it had stopped flowing. Her Bonds catheter was removed and she was sent home without a catheter. Says that she has been passing some urine. She has had no fever. She had a prior episode similar to this about a month ago which required her to have a Bonds catheter. She is not on any new medications in the past couple of months. Advised the patient that I recommend that we put a Bonds catheter and to measure the residual urine in her bladder to determine if the bladder is empty or retaining residual urine. TRAVEL OUTSIDE OF THE [place] IN LAST 30 DAYS: No - Related Data Allergies/Adverse Reactions: No Known Allergies Allergy (Verified 11/14/17 10:07) Past Medical History - Social History Chew tobacco use (# tins/day): No Frequency of alcohol use: None Drug Abuse: None Family history: None - Past Medical History Cardiac Medical History: Reports: Hx Hypercholesterolemia, Hx Hypertension Renal/ Medical History: Reports: Hx Kidney Stones. Denies: Hx Peritoneal Dialysis Past Surgical History: Reports: Hx Urinary Tract Surgery Physical Exam - Vital signs Vitals: Temp Pulse Resp BP Pulse Ox 98.0 F 90 16 139/73 H 95 11/14/17 10:31 11/14/17 10:31 11/14/17 10:31 11/14/17 10:31 11/14/17 10:31 Course - Vital Signs Vital signs: Temp Pulse Resp BP Pulse Ox 98.0 F 90 16 139/73 H 95 11/14/17 10:31 11/14/17 10:31 11/14/17 10:31 11/14/17 10:31 11/14/17 10:31
[2017-11-14 11:35] LABS: ABSOLUTE EOSINOPHILS # (AUTO) 0.2 10^3/uL (0.0-0.6); ABSOLUTE LYMPHOCYTES (AUTO) 1.7 10^3/uL (0.5-4.7); ABSOLUTE MONOCYTES (AUTO) 0.8 10^3/uL (0.1-1.4); ABSOLUTE NEUT (AUTO) 4.8 10^3/uL (1.7-8.2); BASOPHILS % (AUTO) 0.4 % (0-2); EOSINOPHILS % (AUTO) 2.1 % (0-6); HEMATOCRIT 44.1 % (36.0-47.0); MEAN CORPUSCULAR HEMOGLOBIN 31.7 pg (27.0-33.4); MEAN CORPUSCULAR VOLUME 93 fl (80-97); MONOCYTES % (AUTO) 10.8 % (3-13); PLATELET COUNT 194 10^3/uL (150-450); RED BLOOD COUNT 4.74 10^6/uL (3.72-5.28); RED CELL DISTRIBUTION WIDTH 14.4 % (11.5-14.0); SEGMENTED NEUTROPHILS % (AUTO) 64.7 % (42-78); TOTAL CELLS COUNTED % (AUTO) 100 %; WHITE BLOOD COUNT 7.5 10^3/uL (4.0-10.5)
[2017-11-14 11:47] LABS: ALANINE AMINOTRANSFERASE 46 U/L (9-52); ALBUMIN 3.9 g/dL (3.5-5.0); ALKALINE PHOSPHATASE 75 U/L (38-126); ANION GAP 10 (5-19); ASPARTATE AMINO TRANSFERASE 30 U/L (14-36); BILIRUBIN,DIRECT 0.2 mg/dL (0.0-0.4); BILIRUBIN,TOTAL 0.5 mg/dL (0.2-1.3); BLOOD UREA NITROGEN 7 mg/dL (7-20); CALCIUM 9.7 mg/dL (8.4-10.2); CARBON DIOXIDE 31 mmol/L (22-30); CHLORIDE 101 mmol/L (98-107); GLUCOSE 141 mg/dL (75-110); POTASSIUM 3.7 mmol/L (3.6-5.0); SODIUM 141.5 mmol/L (137-145); TOTAL PROTEIN 6.6 g/dL (6.3-8.2)
[2017-11-14 12:06] LABS: APPEARANCE,URINE CLEAR; BILIRUBIN,URINE NEGATIVE (NEGATIVE); COLOR,URINE YELLOW; GLUCOSE, URINE NEGATIVE (NEGATIVE); KETONES,URINE NEGATIVE (NEGATIVE); LEUKOCYTE ESTERASE,URINE TRACE (NEGATIVE); NITRITE,URINE NEGATIVE (NEGATIVE); PROTEIN,URINE NEGATIVE (NEGATIVE); URINE SPECIFIC GRAVITY 1.005
--- NOTE | 2017-11-14 12:22 | ER Document Report ---
ED General - General Chief Complaint: Lower Abdominal Pain Stated Complaint: URINARY ISSUES Time Seen by Provider: 11/14/17 10:46 Mode of Arrival: Ambulatory Information source: Patient Notes: Patient sent to emergency department with complaints of difficulty urinating, vaginal pain. Patient reports she was seen here a couple of days ago because of vaginal pain, lower abdominal pain, and could not urinate. She had a Rebolledo catheter placed and was sent home with a leg bag. She came back a day or so ago because she was having continued vaginal pain and seemed as if it was difficult for her to urinate. She reports urine was still flowing. Her Rebolledo catheter was removed and she was sent home without a catheter. Says that she has been passing some urine. Last voided 5 hours ago. She denies fever/vomiting/ diarrhea. She has not followed up with a pcp. She had a prior episode similar to this about a month ago which required her to have a Rebolledo catheter. She reports she was told she had constipation and once she had a bowel movement she was better. She started taking wellbutrin 2 months ago. TRAVEL OUTSIDE OF THE [place] IN LAST 30 DAYS: No - HPI Onset: Other Onset/Duration: Waxing and waning Quality of pain: Achy Severity: Moderate Pain Level: 3 Associated symptoms: None Exacerbated by: Denies Relieved by: Denies Similar symptoms previously: Yes Recently seen / treated by doctor: Yes - Related Data Allergies/Adverse Reactions: No Known Allergies Allergy (Verified 11/14/17 10:07) Past Medical History - General Information source: Patient - Social History Smoking Status: Current Every Day Smoker Chew tobacco use (# tins/day): No Frequency of alcohol use: None Drug Abuse: None Family History: Reviewed & Not Pertinent Patient has suicidal ideation: No Patient has homicidal ideation: No - Past Medical History Cardiac Medical History: Reports: Hx Hypercholesterolemia, Hx Hypertension Renal/ Medical History: Reports: Hx Kidney Stones. Denies: Hx Peritoneal Dialysis Past Surgical History: Reports: Hx Urinary Tract Surgery Review of Systems - Review of Systems Notes: Review HPI for review of systems., All other systems negative Physical Exam - Vital signs Vitals: Temp Pulse Resp BP Pulse Ox 98.0 F 90 16 139/73 H 95 11/14/17 10:31 11/14/17 10:31 11/14/17 10:31 11/14/17 10:31 11/14/17 10:31 - Notes Notes: PHYSICAL EXAMINATION: GENERAL: Well-appearing and in no acute distress HEAD: Atraumatic, normocephalic. EYES: Pupils equal round , extraocular movements intact, sclera anicteric, conjunctiva are normal. ENT: nares patent, Moist mucous membranes. NECK: Normal range of motion, supple without lymphadenopathy LUNGS: CTAB and equal. No wheezes rales or rhonchi. HEART: Regular rate and rhythm without murmurs ABDOMEN: Soft, no tenderness. No guarding, no rebound Rebolledo draining clear urine EXTREMITIES: Normal range of motion, no pitting edema. No cyanosis. NEUROLOGICAL: Cranial nerves grossly intact. Normal sensory/motor exams. PSYCH: Normal mood, normal affect. SKIN: Warm, Dry, normal turgor, no rashes or lesions noted Course - Re-evaluation Re-evalutation: 11/14/17 12:24 Review of patient's past records indicate she was just here yesterday, she received a pelvic. She has had a rebolledo placed/removed, straight cath. Her preliminary urine culture is negative . Pelvic completed yesterday, negative 11/14/17 12:36 Bladder scan completed by EDGARDO Bailey because pt keeps reporting her bladder feels full, no urine detected, bladder empty. 11/14/17 13:20 labs unremarkable, consulted mental health to discuss current psych meds possibly causing urniary retention, meds reviewed, none noted. consulted dr davis, he advised leave rebolledo in, cover for UTI. Pt requesting rebolledo out, is homeless, living in her car. Daughter lives in [place]. Pt has appointment with the health department in [place] on Thursday. - Vital Signs Vital signs: Temp Pulse Resp BP Pulse Ox 98.0 F 90 16 139/73 H 95 11/14/17 10:31 11/14/17 10:31 11/14/17 10:31 11/14/17 10:31 11/14/17 10:31 - Laboratory Result Diagrams: 11/14/17 10:55 11/14/17 10:55 Laboratory results interpreted by me: 11/14/17 11/14/17 11/14/17 10:55 10:55 11:10 RDW 14.4 H Carbon Dioxide 31 H Glucose 141 H Urine Urobilinogen 2.0 H Ur Leukocyte Esterase TRACE H Discharge - Discharge Clinical Impression: Urinary retention Condition: Stable Disposition: HOME, SELF-CARE Instructions: Cephalexin ([facility]), Urinary Retention ([facility]) Additional Instructions: *You have been evaluated for urinary retention, UTI *Take medication as prescribed *Push fluids *Follow up with the health department Thursday as scheduled *Plan urine recheck in one week *Return to ED for worsening condition, changes, needs, concerns, unable to void Prescriptions: Cephalexin Monohydrate [Keflex 500 mg Capsule] 500 mg PO BID #6 capsule Forms: Elevated Blood Pressure
[2017-11-14] MEDS ORDERED: CEPHALEXIN 500 MG CAPSULE PO ONE (13:01)
== END 2017-11-14 13:27 | disposition home or self-care (01) ==
LOC: ER 10:06
DX: R33.9 Retention of urine, unspecified (principal); R10.2 Pelvic and perineal pain; I10 Essential (primary) hypertension; F17.200 Nicotine dependence, unspecified, uncomplicated; Z79.899 Other long term (current) drug therapy; Z87.442 Personal history of urinary calculi; Z98.890 Other specified postprocedural states; Z59.0 Homelessness
CPT/HCPCS: 36415; 51702; 80053; 81001; 85025; 87086; 87088; 87186; 99283

== ENCOUNTER → 2017-11-15 | Emergency (ER) | payer SELFPAY ==
[2017-11-15 16:40] VITALS: BP 149/73
--- NOTE | 2017-11-15 17:04 | ER Document Report ---
ED Medical Screen (RME) - General Chief Complaint: Psych Problem Stated Complaint: PSYCH PROBLEMS Time Seen by Provider: 11/15/17 16:59 Notes: Patient is here because she has not taken her medications in the last 2 days. She says that she is just forgetting them. Medications that she has missed are Seroquel and Paxil as well as her blood pressure and diabetes medications ( lisinopril and Metformin). Patient says that she has her medications with her in the car but she just does not remember to take them. Patient says that she is a psych patient diagnosed as depression and schizo affective disorder She says that she is homeless. Patient would like to speak with a psychiatrist. I informed her we do not have psychiatrist on medical staff here. This visit is this patient's ninth visit to this emergency department in the nine weeks thus far of this year 2018, five of those visits in the past two days ! Patient is expressing feelings of being "worthless", but will not say that she is actually suicidal. Does not have a plan. TRAVEL OUTSIDE OF THE [place] IN LAST 30 DAYS: No - Related Data Allergies/Adverse Reactions: No Known Allergies Allergy (Verified 11/15/17 16:32) Past Medical History - Social History Family history: None - Past Medical History Cardiac Medical History: Reports: Hx Hypercholesterolemia, Hx Hypertension Renal/ Medical History: Reports: Hx Kidney Stones. Denies: Hx Peritoneal Dialysis Past Surgical History: Reports: Hx Urinary Tract Surgery Physical Exam - Vital signs Vitals: Temp Pulse Resp BP Pulse Ox 98.1 F 108 H 18 149/73 H 95 11/15/17 16:39 11/15/17 16:39 11/15/17 16:39 11/15/17 16:39 11/15/17 16:39 Course - Vital Signs Vital signs: Temp Pulse Resp BP Pulse Ox 98.1 F 108 H 18 149/73 H 95 11/15/17 16:39 11/15/17 16:39 11/15/17 16:39 11/15/17 16:39 11/15/17 16:39
== END | disposition left against medical advice (07) ==
LOC: ER 16:28
DX: F99 Mental disorder, not otherwise specified (principal)
CPT/HCPCS: 99281

== ENCOUNTER → 2018-09-27 | Outpatient (CLI) | payer OTHER ==
--- NOTE | 2018-09-27 16:20 | WOMENS IMAGING REPORT ---
EXAM DESCRIPTION: BILAT DIAGNOSTIC MAMMO W/CAD; U/S BREAST UNILAT LIMITED COMPLETED DATE/TIME: 09/27/2018 2:03 pm; 09/27/2018 2:27 pm REASON FOR STUDY: BILATERAL PAIN;LUMPS; LT BREAST N64.4 COMPARISON: None. TECHNIQUE: Standard craniocaudal and mediolateral oblique views of each breast recorded using digita l acquisition. Additional bilateral 90 mediolateral mammograms were obtained. Because of a history of palpable abnormality left breast, left breast ultrasound was performed. LIMITATIONS: None. FINDINGS: RIGHT BREAST MASSES: No suspicious masses. CALCIFICATIONS: No new or suspicious calcifications. ARCHITECTURAL DISTORTION: None. DEVELOPING DENSITY: None. ASYMMETRY: None noted. OTHER: No other significant findings. LEFT BREAST MASSES: No suspicious masses. CALCIFICATIONS: No new or suspicious calcifications. ARCHITECTURAL DISTORTION: None. DEVELOPING DENSITY: None. ASYMMETRY: None noted. OTHER: No other significant finding. Read with the assistance of CAD: .[facility] - R2 Cenova Version 1.3 .[facility] - R2 Cenova Version 1.3 .[facility] - R2 Cenova Version 2.4 .[facility] - R2 Cenova Version 2.4 .[facility] - R2 [employer] Version 9.2 Left breast ultrasound: Ultrasound left breast was performed throughout the upper half in the area of palpable abnormality an d pain. No discrete findings. No cystic or solid lesions. No acoustic absorption. IMPRESSION: No mammographic evidence for malignancy right breast. No mammographic or sonographic evidence for malignancy left breast BREAST DENSITY: b. There are scattered areas of fibroglandular density. BIRAD: 1 Negative. RECOMMENDATION: RECOMMENDED FOLLOW UP: Please continue yearly bilateral screening mammography/ tomos ynthesis in September 2019 SPECIFIC INTERVENTION/IMAGING/CONSULTATION RECOMMENDED:No additional intervention/ imaging/consultati on needed at this time. COMMUNICATION:Patient notified by letter COMMENT: The patient has been notified of the results by letter per SA requirements. Additional no tification policies are in place for contacting patient with suspicious or incomplete findings. Quality ID #[id number]: The [employer] recommends an annual screening mammogram for women aged 40 years or over. This facility utilizes a reminder system to ensure that all patients receive reminder letters, and/or direct phone calls for appointments. This includes reminders for routine scr eening mammograms, diagnostic mammograms, or other Breast Imaging Interventions when appropriate. Th is patient will be placed in the appropriate reminder system. The [employer] (ACR) has developed recommendations for screening MRI of the breast s in certain patient populations, to be used in conjunction with mammography. Breast MRI surveillanc e may be appropriate for women with more than 20% lifetime risk of developing breast cancer as deter mined by genetic testing, significant family history of the disease, or history of mantle radiation f or Hodgkins Disease. ACR Practice Guidelines 2008. TECHNICAL DOCUMENTATION: FINDING NUMBER: (1) ASSESSMENT: (1) JOB ID: [id number] [employer]- All Rights Reserved Reading location - IP/workstation name: [email or web address]
--- NOTE | 2018-09-27 16:20 | WOMENS IMAGING REPORT ---
EXAM DESCRIPTION: BILAT DIAGNOSTIC MAMMO W/CAD; U/S BREAST UNILAT LIMITED COMPLETED DATE/TIME: 09/27/2018 2:03 pm; 09/27/2018 2:27 pm REASON FOR STUDY: BILATERAL PAIN;LUMPS; LT BREAST N64.4 COMPARISON: None. TECHNIQUE: Standard craniocaudal and mediolateral oblique views of each breast recorded using digita l acquisition. Additional bilateral 90 mediolateral mammograms were obtained. Because of a history of palpable abnormality left breast, left breast ultrasound was performed. LIMITATIONS: None. FINDINGS: RIGHT BREAST MASSES: No suspicious masses. CALCIFICATIONS: No new or suspicious calcifications. ARCHITECTURAL DISTORTION: None. DEVELOPING DENSITY: None. ASYMMETRY: None noted. OTHER: No other significant findings. LEFT BREAST MASSES: No suspicious masses. CALCIFICATIONS: No new or suspicious calcifications. ARCHITECTURAL DISTORTION: None. DEVELOPING DENSITY: None. ASYMMETRY: None noted. OTHER: No other significant finding. Read with the assistance of CAD: .[facility] - R2 Cenova Version 1.3 .[facility] - R2 Cenova Version 1.3 .[facility] - R2 Cenova Version 2.4 .[facility] [place] - R2 Cenova Version 2.4 .[facility] - R2 Social Work Administrator Version 9.2 Left breast ultrasound: Ultrasound left breast was performed throughout the upper half in the area of palpable abnormality an d pain. No discrete findings. No cystic or solid lesions. No acoustic absorption. IMPRESSION: No mammographic evidence for malignancy right breast. No mammographic or sonographic evidence for malignancy left breast BREAST DENSITY: b. There are scattered areas of fibroglandular density. BIRAD: 1 Negative. RECOMMENDATION: RECOMMENDED FOLLOW UP: Please continue yearly bilateral screening mammography/ tomos ynthesis in September 2019 SPECIFIC INTERVENTION/IMAGING/CONSULTATION RECOMMENDED:No additional intervention/ imaging/consultati on needed at this time. COMMUNICATION:Patient notified by letter COMMENT: The patient has been notified of the results by letter per SA requirements. Additional no tification policies are in place for contacting patient with suspicious or incomplete findings. Quality ID #[id number]: The [employer] recommends an annual screening mammogram for women aged 40 years or over. This facility utilizes a reminder system to ensure that all patients receive reminder letters, and/or direct phone calls for appointments. This includes reminders for routine scr eening mammograms, diagnostic mammograms, or other Breast Imaging Interventions when appropriate. Th is patient will be placed in the appropriate reminder system. The [employer] ([employer]) has developed recommendations for screening MRI of the breast s in certain patient populations, to be used in conjunction with mammography. Breast MRI surveillanc e may be appropriate for women with more than 20% lifetime risk of developing breast cancer as deter mined by genetic testing, significant family history of the disease, or history of mantle radiation f or Hodgkins Disease. ACR Practice Guidelines 2008. TECHNICAL DOCUMENTATION: FINDING NUMBER: (1) ASSESSMENT: (1) JOB ID: [id number] [employer]- All Rights Reserved Reading location - IP/workstation name: [email or web address]-RR2
== END ==
LOC: WI 13:43
PROVIDERS: ATTEND Nurse Practitioner Community Health
DX: N64.4 Mastodynia (principal); N63.20 Unspecified lump in the left breast, unspecified quadrant
CPT/HCPCS: 76642; 77066